=== PATIENT | male | born 1950 | race Caucasian/White ===

== ENCOUNTER → 2024-05-02 | Outpatient (CLI) | payer MEDICARE, SELFPAY ==
[2024-05-02 10:37] LABS: Cholesterol 209 mg/dL (132-200); HDL Cholesterol 104 mg/dL (40-60); LDL Cholesterol,Calculated 96 mg/dL (0-130); Triglycerides 44 mg/dL (30-150); Uric Acid 4.6 mg/dL (3.7-9.2)
== END | disposition home or self-care (01) ==
LOC: COPL 08:07
PROVIDERS: PCP Family Medicine; Referring Provider Family Medicine; Visit Provider Family Medicine
DX: E78.00 Pure hypercholesterolemia, unspecified (principal); M1A.0720 Idiopathic chronic gout, left ankle and foot, without tophus (tophi)
CPT/HCPCS: 36415; 80061; 84550